=== PATIENT | male | born 1945 | race Caucasian/White ===

== ENCOUNTER 2021-06-25 13:27 | Emergency (ER) | payer MEDICARE ==
[2021-06-25] MEDS ORDERED: TACROLIMUS1 MG PO (13:41)
[2021-06-25] MEDS ORDERED: LIPITOR 10M10 MG/TAB (13:42)
[2021-06-25] MEDS ORDERED: COREG12.5 M1 (13:43)
[2021-06-25] MEDS ORDERED: FLOMAX0.4 MG PO (13:43)
[2021-06-25] MEDS ORDERED: TOUJEO SOL300 UNIT/1 SQ (13:44)
[2021-06-25] MEDS ORDERED: NORVASC 5MG5 MG/TAB (13:44)
[2021-06-25] MEDS ORDERED: TRULICITY0.75 MG/0. (13:45)
[2021-06-25 14:24] LABS: HEMATOCRIT 34.7 % (42.0-52.0); HEMOGLOBIN 11.3 g/dL (13.5-18.0); MEAN CELL VOLUME 95 fl (78-100); MEAN CORPUSCULAR HEMOGLOBIN 31 pg (27-31); MEAN CORPUSCULAR HGB CONC 33 g/dL (33-37); MEAN PLATELET VOLUME 10.9 fl (7.4-10.4); PLATELET COUNT 220 K/mm3 (130-400); RED BLOOD COUNT 3.64 M/mm3 (4.20-5.60); RED CELL DISTRIBUTION WIDTH 12.3 % (11.5-14.5); WHITE BLOOD COUNT 7.7 K/mm3 (4.8-10.8)
[2021-06-25 14:32] LABS: ALBUMIN 4.2 g/dL (3.4-4.8)
[2021-06-25 14:33] LABS: POTASSIUM 4.9 mmol/L (3.5-5.1)
[2021-06-25 14:35] LABS: TOTAL PROTEIN 7.7 g/dL (6.2-8.1)
[2021-06-25 14:37] LABS: TOTAL BILIRUBIN 0.5 mg/dL (0.2-1.2)
[2021-06-25 14:40] LABS: LYMPHOCYTE 8 % (20-51); MONOCYTE 6 % (3-10); NEUTROPHILS 83 % (42-75)
[2021-06-25 14:56] VITALS: BP 125/72
== END 2021-06-25 14:56 | disposition home or self-care (01) ==
LOC: ED 13:27
PROVIDERS: Family Medicine
DX: E11.649 Type 2 diabetes mellitus with hypoglycemia without coma (principal); I10 Essential (primary) hypertension; Z79.899 Other long term (current) drug therapy; Z94.0 Kidney transplant status